=== PATIENT | female | born 1975 | race Caucasian/White ===

== ENCOUNTER → 2016-12-05 | Outpatient (CLI) | payer BC ==
[2014-06-18 15:48] VITALS: BP 123/76
[~2016-12-05] MED LIST: PROTONIX TR40 M1 PO; TRAMADOL 50 MG TAB PO; ZOFRAN ODT4 MG PO
== END ==
LOC: LAB 07:38
DX: Z00.00 Encounter for general adult medical examination without abnormal findings (principal)

== ENCOUNTER 2017-03-19 18:23 | Emergency (ER) | payer BC ==
[~2017-03-19] VITALS: Ht 162.6 cm; Wt 97.3 kg
[2017-03-19] MEDS ORDERED: PROTONIX TR40 M1 PO (21:26)
[2017-03-19 21:50] VITALS: BP 100/63
[2017-03-19] MEDS ORDERED: ZOFRAN ODT4 MG PO (22:41)
[2017-03-19] MEDS ORDERED: TRAMADOL 50 MG TAB PO (22:42)
== END 2017-03-19 21:50 | disposition home or self-care (01) ==
LOC: ED 18:23
DX: R10.13 Epigastric pain (principal); R11.2 Nausea with vomiting, unspecified; M54.5 Low back pain; M43.17 Spondylolisthesis, lumbosacral region
CPT/HCPCS: C9113; J1885; J2270; J7030; Q9967

== ENCOUNTER → 2017-03-19 | Outpatient (CLI) | payer BC ==
[2014-06-18 15:48] VITALS: BP 123/76
== END ==
LOC: LAB 11:16
DX: R35.0 Frequency of micturition (principal)

== ENCOUNTER → 2017-03-21 | Outpatient (CLI) | payer BC ==
[2017-03-19 21:50] VITALS: BP 100/63
== END ==
LOC: LAB 08:13
DX: R10.9 Unspecified abdominal pain (principal)

== ENCOUNTER → 2017-12-03 | Outpatient (CLI) | payer BC ==
[2017-12-03 16:03] LABS: HEMATOCRIT 38.5 % (37.0-47.0); HEMOGLOBIN 12.6 g/dL (12.5-16.0); MEAN PLATELET VOLUME 8.7 fl (7.4-10.4); RED BLOOD COUNT 4.27 M/mm3 (4.10-5.30); RED CELL DISTRIBUTION WIDTH 13.6 % (11.5-14.5); WHITE BLOOD COUNT 6.5 K/mm3 (4.8-10.8)
[2017-12-03 16:35] LABS: ALBUMIN 4.1 g/dL (3.5-5.0); BUN/CREATININE RATIO 21.6 (6.0-26.0); CALCIUM 9.6 mg/dL (8.4-10.2); POTASSIUM 3.8 mmol/L (3.6-5.0); TOTAL BILIRUBIN 0.4 mg/dL (0.2-1.3); TOTAL PROTEIN 8.2 g/dL (6.3-8.2)
== END ==
LOC: LAB 15:19
PROVIDERS: Family Medicine
DX: Z00.00 Encounter for general adult medical examination without abnormal findings (principal)

== ENCOUNTER → 2018-03-06 | Outpatient (CLI) | payer BC | LOC: RAD 13:41 | DX: K21.9 Gastro-esophageal reflux disease without esophagitis (principal); K44.9 Diaphragmatic hernia without obstruction or gangrene ==

== ENCOUNTER → 2018-07-09 | Outpatient (CLI) | payer BC | LOC: MAMMO 12:49 | DX: Z12.31 Encounter for screening mammogram for malignant neoplasm of breast (principal) ==

== ENCOUNTER → 2018-07-30 | Outpatient (CLI) | payer BC | LOC: RAD 10:04 | DX: M25.561 Pain in right knee (principal) ==

== ENCOUNTER → 2018-12-10 | Outpatient (CLI) | payer BC | LOC: RAD 09:15 | DX: M25.511 Pain in right shoulder (principal) ==

== ENCOUNTER 2019-01-26 15:30 | Outpatient (RCR) | payer BC | END 2019-01-26 16:00 | disposition still patient (30) | LOC: PT 15:30 | DX: M75.111 Incomplete rotator cuff tear or rupture of right shoulder, not specified as traumatic (principal) ==

== ENCOUNTER → 2019-02-20 | Outpatient (CLI) | payer BC ==
[2019-02-20 17:19] LABS: EOS # 0.2 (0.04-0.40); EOS % 1.8 % (1.0-5.0); HEMATOCRIT 39.8 % (37.0-47.0); HEMOGLOBIN 12.8 g/dL (12.5-16.0); LYMPH# 2.2 (1.50-4.00); MEAN CELL VOLUME 92 fl (78-100); MEAN CORPUSCULAR HEMOGLOBIN 30 pg (27-31); MEAN CORPUSCULAR HGB CONC 32 g/dL (33-37); MEAN PLATELET VOLUME 8.4 fl (7.4-10.4); MONO # 0.9 (0.20-0.80); NEU # 7.7 (1.40-6.50); PLATELET COUNT 425 K/mm3 (130-400); RED BLOOD COUNT 4.33 M/mm3 (4.10-5.30); RED CELL DISTRIBUTION WIDTH 14.3 % (11.5-14.5); WHITE BLOOD COUNT 11.1 K/mm3 (4.8-10.8)
[2019-02-20 17:33] LABS: ALBUMIN 3.9 g/dL (3.5-5.0)
[2019-02-20 17:34] LABS: POTASSIUM 3.9 mmol/L (3.5-5.1)
[2019-02-20 17:35] LABS: CALCIUM 9.8 mg/dL (8.3-10.5)
[2019-02-20 17:36] LABS: TOTAL PROTEIN 7.4 g/dL (6.4-8.3)
[2019-02-20 17:38] LABS: TOTAL BILIRUBIN 0.4 mg/dL (0.2-1.2)
== END ==
LOC: LAB 17:01
PROVIDERS: Family Medicine
DX: R76.8 Other specified abnormal immunological findings in serum (principal)

== ENCOUNTER → 2019-02-27 | Outpatient (CLI) | payer BC ==
[2019-02-27 12:50] LABS: HEMATOCRIT 38.6 % (37.0-47.0); HEMOGLOBIN 12.4 g/dL (12.5-16.0); MEAN CELL VOLUME 94 fl (78-100); MEAN CORPUSCULAR HEMOGLOBIN 30 pg (27-31); MEAN CORPUSCULAR HGB CONC 32 g/dL (33-37); MEAN PLATELET VOLUME 8.5 fl (7.4-10.4); PLATELET COUNT 394 K/mm3 (130-400); RED BLOOD COUNT 4.12 M/mm3 (4.10-5.30); RED CELL DISTRIBUTION WIDTH 14.3 % (11.5-14.5); WHITE BLOOD COUNT 11.7 K/mm3 (4.8-10.8)
[2019-02-27 13:00] LABS: ALBUMIN 3.9 g/dL (3.5-5.0)
[2019-02-27 13:03] LABS: TOTAL PROTEIN 7.1 g/dL (6.4-8.3)
[2019-02-27 13:05] LABS: TOTAL BILIRUBIN 0.7 mg/dL (0.2-1.2)
[2019-02-27 13:08] LABS: DIRECT BILIRUBIN 0.2 mg/dL (0.0-0.5)
[2019-02-27 13:24] LABS: LYMPHOCYTE 10 % (20-51); MONOCYTE 4 % (3-10); NEUTROPHILS 86 % (42-75); NUCLEATED RED BLOOD CELL 2 (0-6)
== END ==
LOC: LAB 12:30
DX: Z51.81 Encounter for therapeutic drug level monitoring (principal); Z79.899 Other long term (current) drug therapy

== ENCOUNTER → 2019-03-06 | Outpatient (CLI) | payer BC ==
[2019-03-06 07:26] LABS: EOS # 0.2 (0.04-0.40); EOS % 2.9 % (1.0-5.0); HEMATOCRIT 38.7 % (37.0-47.0); HEMOGLOBIN 12.3 g/dL (12.5-16.0); LYMPH# 1.6 (1.50-4.00); MEAN CELL VOLUME 94 fl (78-100); MEAN CORPUSCULAR HEMOGLOBIN 30 pg (27-31); MEAN CORPUSCULAR HGB CONC 32 g/dL (33-37); MEAN PLATELET VOLUME 8.5 fl (7.4-10.4); MONO # 0.6 (0.20-0.80); NEU # 4.1 (1.40-6.50); PLATELET COUNT 352 K/mm3 (130-400); RED BLOOD COUNT 4.12 M/mm3 (4.10-5.30); RED CELL DISTRIBUTION WIDTH 13.8 % (11.5-14.5); WHITE BLOOD COUNT 6.5 K/mm3 (4.8-10.8)
[2019-03-06 07:42] LABS: ALBUMIN 3.7 g/dL (3.5-5.0)
[2019-03-06 07:45] LABS: TOTAL PROTEIN 6.8 g/dL (6.4-8.3)
[2019-03-06 07:47] LABS: TOTAL BILIRUBIN 0.4 mg/dL (0.2-1.2)
[2019-03-06 07:51] LABS: DIRECT BILIRUBIN 0.1 mg/dL (0.0-0.5)
== END ==
LOC: LAB 07:13
PROVIDERS: Family Medicine
DX: Z51.81 Encounter for therapeutic drug level monitoring (principal); Z79.899 Other long term (current) drug therapy

== ENCOUNTER → 2019-03-30 | Outpatient (CLI) | payer BC ==
[2019-03-30 10:14] LABS: EOS # 0.3 (0.04-0.40); EOS % 4.5 % (1.0-5.0); HEMATOCRIT 38.6 % (37.0-47.0); HEMOGLOBIN 12.7 g/dL (12.5-16.0); LYMPH# 1.3 (1.50-4.00); MEAN CELL VOLUME 92 fl (78-100); MEAN CORPUSCULAR HEMOGLOBIN 30 pg (27-31); MEAN CORPUSCULAR HGB CONC 33 g/dL (33-37); MEAN PLATELET VOLUME 8.5 fl (7.4-10.4); MONO # 0.5 (0.20-0.80); NEU # 3.8 (1.40-6.50); PLATELET COUNT 452 K/mm3 (130-400); RED BLOOD COUNT 4.19 M/mm3 (4.10-5.30); RED CELL DISTRIBUTION WIDTH 13.5 % (11.5-14.5)
[2019-03-30 10:22] LABS: POTASSIUM 3.7 mmol/L (3.5-5.1)
[2019-03-30 10:23] LABS: CALCIUM 9.1 mg/dL (8.3-10.5)
[2019-03-30 10:24] LABS: TOTAL PROTEIN 7.8 g/dL (6.4-8.3)
[2019-03-30 10:26] LABS: TOTAL BILIRUBIN 0.6 mg/dL (0.2-1.2)
[2019-03-30 10:43] LABS: D-DIMER 0.36 mg/L FEU (0.15-0.50)
== END ==
LOC: LAB 10:00 → RAD 10:00
PROVIDERS: Family Medicine
DX: M51.37 Other intervertebral disc degeneration, lumbosacral region (principal); M43.17 Spondylolisthesis, lumbosacral region; M43.07 Spondylolysis, lumbosacral region; R11.0 Nausea

== ENCOUNTER → 2019-06-11 | Outpatient (CLI) | payer BC | LOC: PT 09:30 | DX: M75.21 Bicipital tendinitis, right shoulder (principal) ==

== ENCOUNTER 2019-07-15 09:00 | Outpatient (RCR) | payer BC | END 2019-07-15 09:30 | disposition still patient (30) | LOC: PT 09:00 | DX: M75.21 Bicipital tendinitis, right shoulder (principal); Z98.890 Other specified postprocedural states ==

== ENCOUNTER → 2019-07-24 | Outpatient (CLI) | payer BC ==
[2019-07-24 08:10] LABS: ALBUMIN 4.1 g/dL (3.5-5.0)
[2019-07-24 08:12] LABS: TOTAL PROTEIN 7.3 g/dL (6.4-8.3)
[2019-07-24 08:14] LABS: TOTAL BILIRUBIN 0.7 mg/dL (0.2-1.2)
[2019-07-24 08:15] LABS: EOS # 0.1 (0.04-0.40); EOS % 0.7 % (1.0-5.0); HEMATOCRIT 41.2 % (37.0-47.0); HEMOGLOBIN 12.8 g/dL (12.5-16.0); LYMPH# 2.6 (1.50-4.00); MEAN CELL VOLUME 97 fl (78-100); MEAN CORPUSCULAR HEMOGLOBIN 30 pg (27-31); MEAN CORPUSCULAR HGB CONC 31 g/dL (33-37); MEAN PLATELET VOLUME 8.5 fl (7.4-10.4); NEU # 4.8 (1.40-6.50); PLATELET COUNT 435 K/mm3 (130-400); RED BLOOD COUNT 4.24 M/mm3 (4.10-5.30); RED CELL DISTRIBUTION WIDTH 13.5 % (11.5-14.5); WHITE BLOOD COUNT 8.6 K/mm3 (4.8-10.8)
[2019-07-24 08:18] LABS: DIRECT BILIRUBIN 0.2 mg/dL (0.0-0.5)
== END ==
LOC: LAB 07:50
DX: Z51.81 Encounter for therapeutic drug level monitoring (principal); Z79.899 Other long term (current) drug therapy

== ENCOUNTER → 2019-07-30 | Outpatient (CLI) | payer BC | LOC: MAMMO 07-28 09:15 | DX: Z12.31 Encounter for screening mammogram for malignant neoplasm of breast (principal) ==

== ENCOUNTER → 2019-10-02 | Outpatient (CLI) | payer BC ==
[2019-10-02 07:28] LABS: HEMATOCRIT 39.6 % (37.0-47.0); HEMOGLOBIN 12.9 g/dL (12.5-16.0); MEAN CELL VOLUME 91 fl (78-100); MEAN CORPUSCULAR HEMOGLOBIN 30 pg (27-31); MEAN CORPUSCULAR HGB CONC 33 g/dL (33-37); MEAN PLATELET VOLUME 8.5 fl (7.4-10.4); PLATELET COUNT 382 K/mm3 (130-400); RED BLOOD COUNT 4.34 M/mm3 (4.10-5.30); RED CELL DISTRIBUTION WIDTH 13.7 % (11.5-14.5); WHITE BLOOD COUNT 5.1 K/mm3 (4.8-10.8)
[2019-10-02 07:42] LABS: TOTAL PROTEIN 7.2 g/dL (6.4-8.3)
[2019-10-02 07:44] LABS: TOTAL BILIRUBIN 0.5 mg/dL (0.2-1.2)
[2019-10-02 07:48] LABS: DIRECT BILIRUBIN 0.2 mg/dL (0.0-0.5)
[2019-10-02 08:39] LABS: LYMPHOCYTE 31 % (20-51); MONOCYTE 9 % (3-10); NEUTROPHILS 58 % (42-75)
== END ==
LOC: LAB 07:13
DX: Z51.81 Encounter for therapeutic drug level monitoring (principal); Z79.899 Other long term (current) drug therapy

== ENCOUNTER → 2019-11-16 | Outpatient (CLI) | payer BC ==
[2019-11-16 08:04] LABS: EOS # 0.1 (0.04-0.40); EOS % 1.3 % (1.0-5.0); HEMOGLOBIN 13.1 g/dL (12.5-16.0); LYMPH# 1.1 (1.50-4.00); MEAN CELL VOLUME 93 fl (78-100); MEAN CORPUSCULAR HEMOGLOBIN 30 pg (27-31); MEAN CORPUSCULAR HGB CONC 32 g/dL (33-37); MEAN PLATELET VOLUME 8.5 fl (7.4-10.4); MONO # 0.3 (0.20-0.80); PLATELET COUNT 406 K/mm3 (130-400); RED BLOOD COUNT 4.41 M/mm3 (4.10-5.30); RED CELL DISTRIBUTION WIDTH 14.2 % (11.5-14.5); WHITE BLOOD COUNT 4.5 K/mm3 (4.8-10.8)
[2019-11-16 08:12] LABS: TOTAL PROTEIN 7.5 g/dL (6.4-8.3)
[2019-11-16 08:14] LABS: TOTAL BILIRUBIN 0.4 mg/dL (0.2-1.2)
[2019-11-16 08:18] LABS: DIRECT BILIRUBIN 0.2 mg/dL (0.0-0.5)
== END ==
LOC: LAB 07:36
DX: Z51.81 Encounter for therapeutic drug level monitoring (principal); Z79.899 Other long term (current) drug therapy

== ENCOUNTER → 2020-03-11 | Outpatient (CLI) | payer BC ==
[2020-03-11 07:47] LABS: EOS # 0.2 (0.04-0.40); EOS % 3.2 % (1.0-5.0); HEMOGLOBIN 12.4 g/dL (12.5-16.0); LYMPH# 1.2 (1.50-4.00); MEAN CELL VOLUME 95 fl (78-100); MEAN CORPUSCULAR HEMOGLOBIN 31 pg (27-31); MEAN CORPUSCULAR HGB CONC 33 g/dL (33-37); MEAN PLATELET VOLUME 8.6 fl (7.4-10.4); MONO # 0.5 (0.20-0.80); NEU # 3.1 (1.40-6.50); PLATELET COUNT 377 K/mm3 (130-400); RED BLOOD COUNT 3.99 M/mm3 (4.10-5.30); RED CELL DISTRIBUTION WIDTH 13.8 % (11.5-14.5)
[2020-03-11 07:51] LABS: ALBUMIN 3.9 g/dL (3.5-5.0); POTASSIUM 3.9 mmol/L (3.5-5.1)
[2020-03-11 07:53] LABS: TOTAL PROTEIN 7.5 g/dL (6.4-8.3)
[2020-03-11 07:55] LABS: TOTAL BILIRUBIN 0.4 mg/dL (0.2-1.2)
[2020-03-11 07:59] LABS: DIRECT BILIRUBIN 0.1 mg/dL (0.0-0.5)
[2020-03-11 08:49] LABS: ERYTHROCYTE SEDIMENTATION RATE 21 mm/hr (0-20)
== END ==
LOC: LAB 07:24
DX: M35.9 Systemic involvement of connective tissue, unspecified (principal); M79.10 Myalgia, unspecified site; R76.8 Other specified abnormal immunological findings in serum; Z79.899 Other long term (current) drug therapy

== ENCOUNTER → 2021-03-01 | Outpatient (CLI) | payer BC ==
[2021-03-01 10:51] LABS: BASO # 0.05 (0.02-0.10); EOS # 0.18 (0.04-0.40); EOS % 3.3 % (1.0-5.0); HEMATOCRIT 41.3 % (37.0-47.0); HEMOGLOBIN 13.5 g/dL (12.5-16.0); LYMPH# 1.41 (1.50-4.00); MEAN CELL VOLUME 97 fl (78-100); MEAN CORPUSCULAR HEMOGLOBIN 32 pg (27-31); MEAN CORPUSCULAR HGB CONC 33 g/dL (33-37); MEAN PLATELET VOLUME 8.7 fl (7.4-10.4); MONO # 0.39 (0.20-0.80); NEU # 3.39 (1.40-6.50); PLATELET COUNT 379 K/mm3 (130-400); RED BLOOD COUNT 4.28 M/mm3 (4.10-5.30); RED CELL DISTRIBUTION WIDTH 14.3 % (11.5-14.5); WHITE BLOOD COUNT 5.4 K/mm3 (4.8-10.8)
[2021-03-01 11:13] LABS: ALBUMIN 3.7 g/dL (3.5-5.0)
[2021-03-01 11:16] LABS: TOTAL PROTEIN 7.4 g/dL (6.4-8.3)
[2021-03-01 11:18] LABS: TOTAL BILIRUBIN 0.6 mg/dL (0.2-1.2)
[2021-03-01 11:21] LABS: DIRECT BILIRUBIN 0.2 mg/dL (0.0-0.5)
== END ==
LOC: LAB 09:42
DX: Z79.899 Other long term (current) drug therapy (principal)

== ENCOUNTER → 2022-01-24 | Outpatient (CLI) | payer BC ==
[2022-01-24 13:40] LABS: BASO # 0.02 K/mm3 (0.02-0.10); EOS # 0.15 K/mm3 (0.04-0.40); EOS % 2.9 % (1.0-5.0); HEMATOCRIT 38.6 % (37.0-47.0); HEMOGLOBIN 12.7 g/dL (12.5-16.0); LYMPH# 1.35 K/mm3 (1.50-4.00); MEAN CELL VOLUME 96 fl (78-100); MEAN CORPUSCULAR HEMOGLOBIN 32 pg (27-31); MEAN CORPUSCULAR HGB CONC 33 g/dL (33-37); MEAN PLATELET VOLUME 8.6 fl (7.4-10.4); MONO # 0.51 K/mm3 (0.20-0.80); NEU # 3.15 K/mm3 (1.40-6.50); PLATELET COUNT 322 K/mm3 (130-400); RED BLOOD COUNT 4.03 M/mm3 (4.10-5.30); RED CELL DISTRIBUTION WIDTH 13.6 % (11.5-14.5); WHITE BLOOD COUNT 5.2 K/mm3 (4.8-10.8)
[2022-01-24 13:44] LABS: ALBUMIN 3.6 g/dL (3.5-5.0)
[2022-01-24 13:47] LABS: TOTAL PROTEIN 7.1 g/dL (6.4-8.3)
[2022-01-24 13:49] LABS: TOTAL BILIRUBIN 0.5 mg/dL (0.2-1.2)
[2022-01-24 14:10] LABS: DIRECT BILIRUBIN 0.2 mg/dL (0.0-0.5)
== END ==
LOC: LAB 12:57
PROVIDERS: Internal Medicine Rheumatology
DX: Z79.01 Long term (current) use of anticoagulants (principal)

== ENCOUNTER → 2022-06-06 | Outpatient (CLI) | payer BC ==
[~2022-06-06] MED LIST changes: +METHOTREXATE2.5 MG PO
== END ==
LOC: RAD 08:49
DX: M47.816 Spondylosis without myelopathy or radiculopathy, lumbar region (principal); M43.16 Spondylolisthesis, lumbar region; R10.11 Right upper quadrant pain
CPT/HCPCS: Q9967

== ENCOUNTER 2022-06-07 11:27 | Emergency (ER) | payer BC ==
[~2022-06-07 11:27] MED LIST changes: -METHOTREXATE2.5 MG PO
[2022-06-07] MEDS ORDERED: METHOTREXATE2.5 MG PO (11:36)
[2022-06-07 12:26] LABS: ALBUMIN 3.9 g/dL (3.5-5.0)
[2022-06-07 12:27] LABS: BASO # 0.01 K/mm3 (0.02-0.10); EOS # 0.13 K/mm3 (0.04-0.40); EOS % 1.4 % (1.0-5.0); HEMATOCRIT 38.9 % (37.0-47.0); HEMOGLOBIN 12.9 g/dL (12.5-16.0); LYMPH# 1.17 K/mm3 (1.50-4.00); MEAN CELL VOLUME 97 fl (78-100); MEAN CORPUSCULAR HEMOGLOBIN 32 pg (27-31); MEAN CORPUSCULAR HGB CONC 33 g/dL (33-37); MEAN PLATELET VOLUME 8.5 fl (7.4-10.4); MONO # 0.75 K/mm3 (0.20-0.80); NEU # 7.42 K/mm3 (1.40-6.50); PLATELET COUNT 384 K/mm3 (130-400); POTASSIUM 3.6 mmol/L (3.5-5.1); RED BLOOD COUNT 4.02 M/mm3 (4.10-5.30); RED CELL DISTRIBUTION WIDTH 13.2 % (11.5-14.5); WHITE BLOOD COUNT 9.5 K/mm3 (4.8-10.8)
[2022-06-07 12:28] LABS: CALCIUM 9.7 mg/dL (8.3-10.5)
[2022-06-07 12:29] LABS: TOTAL PROTEIN 7.9 g/dL (6.4-8.3)
[2022-06-07 12:31] LABS: TOTAL BILIRUBIN 0.7 mg/dL (0.2-1.2)
[2022-06-07 14:13] VITALS: BP 110/79
== END 2022-06-07 14:14 | disposition home or self-care (01) ==
LOC: ED 11:27
PROVIDERS: Physician Assistant
DX: K85.90 Acute pancreatitis without necrosis or infection, unspecified (principal); Z28.310 Unvaccinated for COVID-19
CPT/HCPCS: J2270; J2405; J3010; J7030

== ENCOUNTER → 2022-09-21 | Outpatient (CLI) | payer BC ==
[~2022-09-21] MED LIST changes: +METHOTREXATE2.5 MG PO
[2022-09-21 14:14] LABS: BASO # 0.02 K/mm3 (0.02-0.10); EOS % 3.3 % (1.0-5.0); HEMATOCRIT 38.6 % (37.0-47.0); HEMOGLOBIN 12.5 g/dL (12.5-16.0); LYMPH# 1.35 K/mm3 (1.50-4.00); MEAN CELL VOLUME 98 fl (78-100); MEAN CORPUSCULAR HEMOGLOBIN 32 pg (27-31); MEAN CORPUSCULAR HGB CONC 32 g/dL (33-37); MEAN PLATELET VOLUME 8.6 fl (7.4-10.4); MONO # 0.49 K/mm3 (0.20-0.80); NEU # 4.01 K/mm3 (1.40-6.50); PLATELET COUNT 367 K/mm3 (130-400); RED BLOOD COUNT 3.96 M/mm3 (4.10-5.30); RED CELL DISTRIBUTION WIDTH 13.7 % (11.5-14.5); WHITE BLOOD COUNT 6.1 K/mm3 (4.8-10.8)
[2022-09-21 14:16] LABS: ALBUMIN 3.8 g/dL (3.5-5.0)
[2022-09-21 14:19] LABS: TOTAL PROTEIN 7.1 g/dL (6.4-8.3)
[2022-09-21 14:20] LABS: TOTAL BILIRUBIN 0.6 mg/dL (0.2-1.2)
[2022-09-21 14:24] LABS: DIRECT BILIRUBIN 0.2 mg/dL (0.0-0.5)
== END ==
LOC: LAB 13:36
PROVIDERS: Internal Medicine Rheumatology
DX: Z79.899 Other long term (current) drug therapy (principal)

== ENCOUNTER → 2023-05-15 | Outpatient (CLI) | payer BC ==
[~2023-05-15] MED LIST changes: +BACTRIM DS TAB1 EACH PO; +KETOROLAC10 MG PO
== END ==
LOC: MAMMO 15:53
DX: Z12.31 Encounter for screening mammogram for malignant neoplasm of breast (principal); N64.89 Other specified disorders of breast

== ENCOUNTER → 2023-06-06 | Outpatient (CLI) | payer BC | LOC: RAD 13:00 | DX: N60.02 Solitary cyst of left breast (principal) ==

== ENCOUNTER → 2023-12-04 | Outpatient (CLI) | payer BC ==
[2023-12-04 07:32] LABS: BASO # 0.03 K/mm3 (0.02-0.10); EOS # 0.15 K/mm3 (0.04-0.40); EOS % 3.3 % (1.0-5.0); HEMATOCRIT 39.1 % (37.0-47.0); HEMOGLOBIN 12.9 g/dL (12.5-16.0); LYMPH# 1.02 K/mm3 (1.50-4.00); MEAN CELL VOLUME 95 fl (78-100); MEAN CORPUSCULAR HEMOGLOBIN 31 pg (27-31); MEAN CORPUSCULAR HGB CONC 33 g/dL (33-37); MEAN PLATELET VOLUME 8.4 fl (7.4-10.4); MONO # 0.54 K/mm3 (0.20-0.80); NEU # 2.82 K/mm3 (1.40-6.50); PLATELET COUNT 364 K/mm3 (130-400); RED BLOOD COUNT 4.11 M/mm3 (4.10-5.30); WHITE BLOOD COUNT 4.6 K/mm3 (4.8-10.8)
[2023-12-04 07:43] LABS: TOTAL PROTEIN 7.4 g/dL (6.4-8.3)
[2023-12-04 07:45] LABS: TOTAL BILIRUBIN 0.8 mg/dL (0.2-1.2)
[2023-12-04 07:49] LABS: DIRECT BILIRUBIN 0.3 mg/dL (0.0-0.5)
== END ==
LOC: LAB 07:18
PROVIDERS: Internal Medicine Rheumatology
DX: Z51.81 Encounter for therapeutic drug level monitoring (principal); Z79.899 Other long term (current) drug therapy

== ENCOUNTER → 2024-02-18 | Outpatient (CLI) | payer BC ==
[2024-02-18 14:06] LABS: BASO # 0.02 K/mm3 (0.02-0.10); EOS # 0.21 K/mm3 (0.04-0.40); EOS % 5.4 % (1.0-5.0); HEMATOCRIT 38.8 % (37.0-47.0); HEMOGLOBIN 12.7 g/dL (12.5-16.0); LYMPH# 1.32 K/mm3 (1.50-4.00); MEAN CELL VOLUME 96 fl (78-100); MEAN CORPUSCULAR HEMOGLOBIN 31 pg (27-31); MEAN CORPUSCULAR HGB CONC 33 g/dL (33-37); MEAN PLATELET VOLUME 8.2 fl (7.4-10.4); MONO # 0.33 K/mm3 (0.20-0.80); NEU # 2.04 K/mm3 (1.40-6.50); PLATELET COUNT 354 K/mm3 (130-400); RED BLOOD COUNT 4.06 M/mm3 (4.10-5.30); RED CELL DISTRIBUTION WIDTH 14.1 % (11.5-14.5); WHITE BLOOD COUNT 3.9 K/mm3 (4.8-10.8)
[2024-02-18 14:13] LABS: ALBUMIN 3.9 g/dL (3.5-5.0)
[2024-02-18 14:15] LABS: TOTAL PROTEIN 7.4 g/dL (6.4-8.3)
[2024-02-18 14:17] LABS: TOTAL BILIRUBIN 0.4 mg/dL (0.2-1.2)
[2024-02-18 14:22] LABS: DIRECT BILIRUBIN 0.1 mg/dL (0.0-0.5)
== END ==
LOC: RAD 09:00
PROVIDERS: Orthopaedic Surgery Sports Medicine
DX: M22.42 Chondromalacia patellae, left knee (principal)

== ENCOUNTER → 2024-03-24 | Outpatient (CLI) | payer BC ==
[2024-03-24 14:32] LABS: BASO # 0.01 K/mm3 (0.02-0.10); EOS # 0.19 K/mm3 (0.04-0.40); EOS % 3.6 % (1.0-5.0); HEMOGLOBIN 12.7 g/dL (12.5-16.0); LYMPH# 1.19 K/mm3 (1.50-4.00); MEAN CELL VOLUME 95 fl (78-100); MEAN CORPUSCULAR HEMOGLOBIN 31 pg (27-31); MEAN CORPUSCULAR HGB CONC 33 g/dL (33-37); MEAN PLATELET VOLUME 8.3 fl (7.4-10.4); MONO # 0.27 K/mm3 (0.20-0.80); NEU # 3.58 K/mm3 (1.40-6.50); PLATELET COUNT 403 K/mm3 (130-400); RED CELL DISTRIBUTION WIDTH 14.1 % (11.5-14.5); WHITE BLOOD COUNT 5.3 K/mm3 (4.8-10.8)
[2024-03-24 14:37] LABS: CALCIUM 9.7 mg/dL (8.3-10.5)
[2024-03-24 14:38] LABS: TOTAL PROTEIN 7.3 g/dL (6.4-8.3)
[2024-03-24 14:40] LABS: TOTAL BILIRUBIN 0.5 mg/dL (0.2-1.2)
== END ==
LOC: LAB 14:14
PROVIDERS: Nurse Practitioner Family
DX: R22.0 Localized swelling, mass and lump, head (principal); Z79.899 Other long term (current) drug therapy

== ENCOUNTER → 2024-04-30 | Outpatient (CLI) | payer BC ==
[2024-05-01 18:16] LABS: TB GOLD INTERPRETATION.TB GOLD Negative (Negative)
== END ==
LOC: LAB 13:50
PROVIDERS: Physician Assistant
DX: Z51.81 Encounter for therapeutic drug level monitoring (principal); Z79.899 Other long term (current) drug therapy

== ENCOUNTER → 2024-05-18 | Outpatient (CLI) | payer BC | LOC: MAMMO 13:28 | DX: Z12.31 Encounter for screening mammogram for malignant neoplasm of breast (principal) ==

== ENCOUNTER → 2024-06-08 | Outpatient (CLI) | payer BC ==
[2024-06-08 11:54] LABS: HEMATOCRIT 38.3 % (37.0-47.0); HEMOGLOBIN 12.6 g/dL (12.5-16.0); MEAN PLATELET VOLUME 8.4 fl (7.4-10.4); RED BLOOD COUNT 3.94 M/mm3 (4.10-5.30); RED CELL DISTRIBUTION WIDTH 14.4 % (11.5-14.5); WHITE BLOOD COUNT 9.1 K/mm3 (4.8-10.8)
[2024-06-08 12:20] LABS: CALCIUM 9.3 mg/dL (8.3-10.5)
[2024-06-08 12:21] LABS: TOTAL PROTEIN 7.9 g/dL (6.4-8.3)
== END ==
LOC: LAB 11:45
DX: R10.10 Upper abdominal pain, unspecified (principal)

== ENCOUNTER → 2024-07-03 | Outpatient (CLI) | payer BC | LOC: LAB 07:33 | DX: Z51.81 Encounter for therapeutic drug level monitoring (principal); Z79.899 Other long term (current) drug therapy ==

== ENCOUNTER → 2024-07-03 | Outpatient (CLI) | payer BC ==
[2024-07-03 13:47] LABS: BASO # 0.03 K/mm3 (0.02-0.10); EOS # 0.26 K/mm3 (0.04-0.40); EOS % 4.8 % (1.0-5.0); HEMATOCRIT 36.4 % (37.0-47.0); HEMOGLOBIN 12.1 g/dL (12.5-16.0); LYMPH# 1.71 K/mm3 (1.50-4.00); MEAN CELL VOLUME 97 fl (78-100); MEAN CORPUSCULAR HEMOGLOBIN 32 pg (27-31); MEAN CORPUSCULAR HGB CONC 33 g/dL (33-37); MEAN PLATELET VOLUME 8.6 fl (7.4-10.4); MONO # 0.53 K/mm3 (0.20-0.80); NEU # 2.88 K/mm3 (1.40-6.50); PLATELET COUNT 350 K/mm3 (130-400); RED BLOOD COUNT 3.76 M/mm3 (4.10-5.30); RED CELL DISTRIBUTION WIDTH 14.6 % (11.5-14.5); WHITE BLOOD COUNT 5.4 K/mm3 (4.8-10.8)
[2024-07-03 13:53] LABS: ALBUMIN 3.9 g/dL (3.5-5.0)
[2024-07-03 13:56] LABS: TOTAL PROTEIN 7.3 g/dL (6.4-8.3)
[2024-07-03 13:58] LABS: TOTAL BILIRUBIN 0.5 mg/dL (0.2-1.2)
[2024-07-03 14:01] LABS: DIRECT BILIRUBIN 0.1 mg/dL (0.0-0.5)
== END ==
LOC: LAB 13:35
PROVIDERS: Internal Medicine Rheumatology
DX: M35.9 Systemic involvement of connective tissue, unspecified (principal)